=== PATIENT | female | born 1990 | race African-American/Black ===

== ENCOUNTER 2016-08-14 18:29 | Emergency (ER) | payer MEDICAID ==
[~2016-08-14] VITALS: Ht 154.9 cm; Wt 63.5 kg
[2016-08-14 19:20] VITALS: BP 129/59
== END 2016-08-14 20:34 | disposition home or self-care (01) ==
LOC: ER 18:35
DX: R09.81 Nasal congestion (principal); J20.9 Acute bronchitis, unspecified

== ENCOUNTER 2016-08-30 15:41 | Emergency (ER) | payer MEDICAID ==
[~2016-08-30] VITALS: Ht 154.9 cm; Wt 59.0 kg
[2016-08-30 16:09] VITALS: BP 118/81
== END 2016-08-30 16:28 | disposition home or self-care (01) ==
LOC: ER 15:49
DX: J20.9 Acute bronchitis, unspecified (principal)

== ENCOUNTER 2016-12-24 11:50 | Emergency (ER) | payer MEDICAID ==
[~2016-12-24] VITALS: Ht 172.7 cm; Wt 59.9 kg
[2016-12-24 14:00] VITALS: BP 124/76
[2016-12-24] MEDS ORDERED: KETOROLAC TROMETH 60MG/2ML VIAL IM ONE (14:15)
== END 2016-12-24 14:43 | disposition home or self-care (01) ==
LOC: ER 11:50
DX: G44.209 Tension-type headache, unspecified, not intractable (principal)
CPT/HCPCS: 96372; 99283; J1885

== ENCOUNTER 2017-03-12 12:42 | Emergency (ER) | payer MEDICAID ==
[~2017-03-12] VITALS: Ht 154.9 cm; Wt 64.0 kg
[2017-03-12 13:01] VITALS: BP 106/69
[2017-03-12] MEDS ORDERED: KETOROLAC TROMETH 60MG/2ML VIAL IM ONE (13:30)
== END 2017-03-12 13:40 | disposition home or self-care (01) ==
LOC: ER 12:47
DX: J01.90 Acute sinusitis, unspecified (principal); N39.0 Urinary tract infection, site not specified; H92.02 Otalgia, left ear
CPT/HCPCS: 81002; 96372; 99283; J1885

== ENCOUNTER 2017-05-19 13:08 | Emergency (ER) | payer MEDICAID ==
[~2017-05-19] VITALS: Ht 154.9 cm; Wt 67.6 kg
[2017-05-19 13:21] VITALS: BP 110/53
[2017-05-19 13:43] LABS: Basophils # (auto) 0 uL; Basophils % (auto) 0.7 % (0.0-2.0); Eosinophils # (auto) 0 uL; Eosinophils % (auto) 0.5 % (0.0-7.0); Hematocrit 33.4 % (36.0-46.0); Hemoglobin 10.8 g/dL (12.2-16.2); Lymphocytes # (auto) 1.6 uL; Lymphocytes % (auto) 24.1 % (10.0-50.0); Mean Corpuscular Hemoglobin 28.5 pg (28.0-32.0); Mean Corpuscular Hgb Conc. 32.2 g/dL (32.0-36.0); Mean Corpuscular Volume 88.5 fL (80.0-100.0); Mean Platelet Volume 9.1 fL (6.9-10.8); Monocytes # (auto) 0.4 uL; Monocytes % (auto) 5.3 % (0.0-12.0); Neutrophils # (auto) 4.6 uL; Neutrophils % (auto) 69.4 % (37.0-80.0); Nucleated Red Blood Cells % 0.1 %; Platelet Count (auto) 216 10^3/uL (140-450); Red Cell Distribution Width 14.7 % (11.8-14.3); White Blood Cell 6.6 10^3/uL (4.4-10.8)
[2017-05-19 14:06] LABS: Albumin 3.8 g/dL (3.4-5.0); BUN/Creatinine Ratio 14.7; Bilirubin, Total 0.5 mg/dL (0.2-1.0); Calcium 8.3 mg/dL (8.5-10.1); Potassium 3.8 mmol/L (3.5-5.1); Total Protein 7.9 g/dL (6.4-8.2)
== END 2017-05-19 19:04 | disposition home or self-care (01) ==
LOC: ER 13:08
DX: J01.90 Acute sinusitis, unspecified (principal)
CPT/HCPCS: 36415; 80053; 84702; 85025

== ENCOUNTER 2017-07-11 17:35 | Emergency (ER) | payer MEDICAID ==
[~2017-07-11] VITALS: Ht 154.9 cm; Wt 63.5 kg
[2017-07-11 17:43] VITALS: BP 113/53
== END 2017-07-11 20:52 | disposition home or self-care (01) ==
LOC: ER 17:35
DX: G44.209 Tension-type headache, unspecified, not intractable (principal)
CPT/HCPCS: 70450

== ENCOUNTER 2017-08-17 13:00 | Emergency (ER) | payer MEDICAID ==
[~2017-08-17] VITALS: Ht 154.9 cm; Wt 64.4 kg
[2017-08-17 13:36] VITALS: BP 108/61
== END 2017-08-17 14:30 | disposition left against medical advice (07) ==
LOC: ER 13:00
DX: R51 Headache (principal); Z53.21 Procedure and treatment not carried out due to patient leaving prior to being seen by health care provider

== ENCOUNTER 2018-05-10 12:21 | Emergency (ER) | payer MEDICAID ==
[~2018-05-10] VITALS: Ht 154.9 cm; Wt 63.5 kg
[2018-05-10 12:32] VITALS: BP 106/69
== END 2018-05-10 14:55 | disposition home or self-care (01) ==
LOC: ER 12:21
DX: R05 Cough (principal); R11.2 Nausea with vomiting, unspecified; R19.7 Diarrhea, unspecified; F41.9 Anxiety disorder, unspecified; F32.9 Major depressive disorder, single episode, unspecified

== ENCOUNTER 2024-02-15 18:48 | Emergency (ER) | payer MEDICAID ==
[~2024-02-15] VITALS: Ht 154.9 cm; Wt 79.4 kg
[2024-02-15 19:13] LABS: Urine Bacteria None Seen /hpf (None Seen)
[2024-02-15 19:40] LABS: Urine Blood Negative /uL (Negative); Urine Clarity Clear (Clear); Urine Color Yellow (Yellow); Urine Mucus FEW (None Seen); Urine Protein, UAD 1+ (Negative); Urine Specific Gravity 1.035 (1.001-1.035); Urine Urobilinogen 3 mg/dL (Negative); Urine WBC 20 /hpf (0 - 5); Urine pH 6.5 (5.0-9.0)
[2024-02-15 22:27] VITALS: BP 116/76; PULSE 86; RESP 16; TEMP 98.4; O2SAT 100
== END 2024-02-15 22:34 | disposition home or self-care (01) ==
LOC: ER 18:48
DX: O34.41 Maternal care for other abnormalities of cervix, first trimester (principal); N84.1 Polyp of cervix uteri; F41.9 Anxiety disorder, unspecified; F32.A Depression, unspecified; Z3A.12 12 weeks gestation of pregnancy
CPT/HCPCS: 76801; 81001

== ENCOUNTER 2025-07-02 16:48 | Observation (INO) | payer MEDICAID ==
[2025-07-02] MEDS ORDERED: NITR-87 PO (17:30)
--- NOTE | 2025-07-03 00:59 | DVHDS2 ---
Physician Discharge Progress N Final Diagnosis: hx of pyleo,uti 25wks Operations or Procedures: Operations or Procedures nst reactive reviwed,sono Condition on Discharge: Good Disposition: Home Discharge Instructions: Diet: Regular Activity: No Restrictions, As Tolerated Medications: na Follow Up Care: Specialist: 1d with ob Discharge Statement: "Patient was advised to return to the ER or call 911 if any headaches, dizziness, shortness of breath, chest pain, abdominal pain, bleeding, fevers, or worsening of medical condition. Patient was counseled about treatment plan, medications, possible side effects, patientverbalized understanding. All questions were answered to the best of my ability. This discharge took greater then 30 minutes in planning, reviewing documentation, counseling the patient, and discussing with other team members." Visit Coding OBGYN Date of Service: Jul 02, 2025 Billing Provider: YARA CORMIER DO [facility] Common Visit Codes: [id number] OBS CARE (HIGH) [facility] Procedure Codes: 77454-27- NON-STRESS TEST YARA CORMIER DO Jul 03, 2025 00:59
== END 2025-07-02 17:35 | disposition home or self-care (01) ==
LOC: LDRP 16:48
PROVIDERS: ADMIT Obstetrics & Gynecology; ATTEND Obstetrics & Gynecology
DX: O23.42 Unspecified infection of urinary tract in pregnancy, second trimester (principal); N39.0 Urinary tract infection, site not specified; Z3A.27 27 weeks gestation of pregnancy; Z98.890 Other specified postprocedural states
CPT/HCPCS: 59025; 81002; 94760; G0378